=== PATIENT | male | born 1980 | race Caucasian/White ===

== ENCOUNTER 2016-06-14 23:14 | Emergency (ER) | payer SELFPAY ==
[~2016-06-14] VITALS: Ht 180.3 cm; Wt 118.3 kg
[~2016-06-14 23:14] MED LIST: AMOXICILLIN500 MG; ASPIR 8181 MG PO; ASPIRIN81 M2 PO; ATARAX,VISTARIL50 MG PO; BACTRIM,SEPT1 TABLET PO; CLONAZEPAM2 MG PO; HYDROCODON-ACE1 EAC7 PO; KLONOPIN PO; KLONOPIN0.5 M1 PO; KLONOPIN1 MG PO; KLONOPIN2 MG PO; LIPITOR40 MG PO; NAPROSYN500 MG PO; NAPROXEN500 MG PO; PERCOCET 5/31 TABLET PO; PRINIVIL20 MG PO; PRINIVIL40 MG PO; [UNRECOGNIZED DRUG - REMARK] PO
[2016-06-14] MEDS ORDERED: KLONOPIN1 MG PO (23:57)
[2016-06-14] MEDS ORDERED: PRINIVIL5 MG PO (23:58)
[2016-06-15] LABS: HEMATOCRIT 43.3 % (38.0-50.0); MCH 28.5 PG (29.0-34.0); MCHC 34.9 G/DL (30.0-36.0); MCV 81.9 FL (86-99); MEAN PLAT.VOLUME 9.5 uM^3 (9.0-12.4); PLATELET COUNT 296 K/uL (156-360); RBC DIS.WIDTH-CV 13.2 % (11.8-14.6); RED BLOOD COUNT 5.29 M/uL (4.00-5.50)
[2016-06-15 00:08] LABS: CHLORIDE 105 mEq/L (99-109); SODIUM 140 mEq/L (136-147)
[2016-06-15 00:10] LABS: GLUCOSE 123 mg/dL (70-99)
[2016-06-15 00:11] LABS: ANION GAP 9 MEQ/L (2-14)
[2016-06-15 00:14] LABS: GFR ESTIMATE (CALCULATED) > 59 mL/min/
[2016-06-15 00:15] LABS: UREA NITROGEN (BUN) 14 mg/dL (9-23)
[2016-06-15 00:20] LABS: TROP-I INTERPRETATION NEGATIVE; TROPONIN-I < 0.01 ng/mL (0.0-0.30)
[2016-06-15 02:31] LABS: TROP-I INTERPRETATION NEGATIVE; TROPONIN-I < 0.01 ng/mL (0.0-0.30)
[2016-06-15 02:55] VITALS: BP 124/73
== END 2016-06-15 02:56 | disposition home or self-care (01) ==
LOC: EME 23:14
PROVIDERS: Emergency Medicine
DX: R07.9 Chest pain, unspecified (principal); F41.9 Anxiety disorder, unspecified; R06.00 Dyspnea, unspecified; I10 Essential (primary) hypertension; F17.200 Nicotine dependence, unspecified, uncomplicated
CPT/HCPCS: 71020; 80048; 84484; 85027; 93005; 99281; 99285

== ENCOUNTER 2017-11-14 18:15 | Emergency (ER) | payer SELFPAY ==
[~2017-11-14] VITALS: Ht 182.9 cm; Wt 119.2 kg
[~2017-11-14 18:15] MED LIST changes: +PRINIVIL5 MG PO
[2017-11-14] MEDS ORDERED: KLONOPIN1 MG PO (21:02)
[2017-11-14 21:26] VITALS: BP 122/78
== END 2017-11-14 21:27 | disposition home or self-care (01) ==
LOC: EME 18:15
DX: F41.9 Anxiety disorder, unspecified (principal); Z76.0 Encounter for issue of repeat prescription; F17.200 Nicotine dependence, unspecified, uncomplicated; Z88.5 Allergy status to narcotic agent; Z88.1 Allergy status to other antibiotic agents; Z88.8 Allergy status to other drugs, medicaments and biological substances